=== PATIENT | male | born 1980 | race African-American/Black ===

== ENCOUNTER 2017-05-27 19:34 | Emergency (ER) | payer MEDICAID, OTHER ==
[~2017-05-27] VITALS: Ht 172.7 cm; Wt 212.6 kg
[2017-05-27] MEDS ORDERED: ASPIRIN 81 MG TABLET CHEW ONE (20:48)
[2017-05-27] MEDS ORDERED: OXYcodone/APAP 5/325MG TABLET ONE (20:48)
[2017-05-27 20:53] VITALS: BP 141/82
[2017-05-27 20:56] LABS: BASOPHILS # (AUTO) 0.01 x10^3/uL (0-0.1); BASOPHILS % (AUTO) 0 % (0-1); EOSINOPHILS # (AUTO) 0.09 x10^3/uL (0-0.4); EOSINOPHILS % (AUTO) 1 % (1-7); LYMPHOCYTES # (AUTO) 0.83 x10^3/uL (1-3.4); LYMPHOCYTES % (AUTO) 9 % (22-44); MD NO; MEAN CORPUSCULAR HEMOGLOBIN 24.5 pg (27.5-34.5); MEAN CORPUSCULAR HGB CONC 31.6 g/dL (33.2-36.2); MEAN CORPUSCULAR VOLUME 77.6 fL (81-97); MEAN PLATELET VOLUME 8.2 fL (7.4-10.4); MONOCYTES # (AUTO) 0.55 x10^3/uL (0.2-0.8); MONOCYTES % (AUTO) 6 % (2-9); NEUTROPHILS # (AUTO) 8.27 x10^3/uL (1.8-6.8); NEUTROPHILS % (AUTO) 85 % (42-75); PLATELET COUNT 266 x10^3/uL (130-400); RED CELL DISTRIBUTION WIDTH 17.3 % (9.4-14.8)
[2017-05-27] MEDS ORDERED: OXYcodone/APAP 5/325MG TABLET PO ONE (21:00)
[2017-05-27] MEDS ORDERED: ASPIRIN 81 MG TABLET CHEW PO ONE (21:00)
[2017-05-27 21:06] LABS: ALBUMIN 2.7 g/dL (3.4-5.0); ANION GAP 4 mmol/L (5-15); CALCIUM 8.8 mg/dL (8.5-10.1); CHLORIDE 108 mmol/L (98-107)
[2017-05-27 21:12] LABS: ALANINE AMINOTRANSFERASE 29 U/L (12-78); ALKALINE PHOSPHATASE 118 U/L (45-117); BILIRUBIN,TOTAL 0.2 mg/dL (0.2-1.0); CREATININE 1.05 mg/dL (0.7-1.3); TOTAL PROTEIN 7.4 g/dL (6.4-8.2); TROPONIN I < 0.015 ng/mL (0.000-0.045)
== END 2017-05-27 22:02 | disposition home or self-care (01) ==
LOC: ED 20:41
DX: S29.011A Strain of muscle and tendon of front wall of thorax, initial encounter (principal); X58.XXXA Exposure to other specified factors, initial encounter; Y93.89 Activity, other specified; Y92.89 Other specified places as the place of occurrence of the external cause; Y99.8 Other external cause status; I10 Essential (primary) hypertension; E66.01 Morbid (severe) obesity due to excess calories; Z68.45 Body mass index [BMI] 70 or greater, adult; K21.9 Gastro-esophageal reflux disease without esophagitis; F17.210 Nicotine dependence, cigarettes, uncomplicated
CPT/HCPCS: 36415; 71020; 80053; 83880; 84484; 85025; 93005; 99285

== ENCOUNTER 2017-12-07 22:15 | Inpatient (IN) | payer MEDICAID ==
[~2017-12-07] VITALS: Ht 172.7 cm; Wt 134.2 kg
[2017-12-07] MEDS ORDERED: SODIUM CHLORIDE 0.9% 1,000 ML IV ONE (22:46)
[2017-12-07] MEDS ORDERED: RACEPINEPHRINE INH 2.25%, 0.5ML ONE (22:47)
[2017-12-07] MEDS ORDERED: SODIUM CHLORIDE FLUSH 10ML SYR IVF ONE (23:00)
[2017-12-07] MEDS ORDERED: OMNIPAQUE 350 MG/ML, 100ML BOTTLE ONE (23:00)
[2017-12-07] MEDS ORDERED: DEXAMETHASONE 4 MG/ML, 1ML IV ONE (23:00)
[2017-12-07] MEDS ORDERED: MORPHINE SULFATE 4 MG/ML, 1ML IVPush PRN (23:00)
[2017-12-07] MEDS ORDERED: NITROGLYCERIN OINT 2%, 1GM TP ONE ×2 (23:00→23:04)
[2017-12-07] MEDS ORDERED: DEXAMETHASONE 4 MG/ML, 5ML ONE (23:04)
[2017-12-07] MEDS ORDERED: MORPHINE SULFATE 4 MG/ML, 1ML ONE (23:04)
[2017-12-07] MEDS ORDERED: NITROGLYCERIN SINGLE TAB 0.4 MG SL ONE (23:09)
[2017-12-07 23:30] LABS: BASOPHILS # (AUTO) 0.01 x10^3/uL (0-0.1); BASOPHILS % (AUTO) 0 % (0-1); EOSINOPHILS # (AUTO) 0.06 x10^3/uL (0-0.4); EOSINOPHILS % (AUTO) 1 % (1-7); LYMPHOCYTES # (AUTO) 0.79 x10^3/uL (1-3.4); LYMPHOCYTES % (AUTO) 7 % (22-44); MD NO; MEAN CORPUSCULAR HGB CONC 31.9 g/dL (33.2-36.2); MEAN PLATELET VOLUME 8.8 fL (7.4-10.4); MONOCYTES # (AUTO) 0.35 x10^3/uL (0.2-0.8); MONOCYTES % (AUTO) 3 % (2-9); NEUTROPHILS # (AUTO) 9.83 x10^3/uL (1.8-6.8); NEUTROPHILS % (AUTO) 89 % (42-75); PLATELET COUNT 269 x10^3/uL (130-400); RED BLOOD COUNT 5.78 x10^6/uL (4.38-5.82); RED CELL DISTRIBUTION WIDTH 17.1 % (9.4-14.8)
[2017-12-07 23:42] LABS: INTERNATIONAL NORMALIZED RATIO 0.95 (0.93-1.1); PROTHROMBIN TIME 9.9 Seconds (9.6-11.5)
[2017-12-07 23:44] LABS: ALANINE AMINOTRANSFERASE 27 U/L (12-78); ALBUMIN 2.8 g/dL (3.4-5.0); ANION GAP 6 mmol/L (5-15); CALCIUM 8.6 mg/dL (8.5-10.1); CHLORIDE 105 mmol/L (98-107); CREATININE 0.85 mg/dL (0.7-1.3)
[2017-12-07 23:48] LABS: ALKALINE PHOSPHATASE 137 U/L (45-117); BILIRUBIN,TOTAL 0.2 mg/dL (0.2-1.0); TOTAL PROTEIN 7.6 g/dL (6.4-8.2); TROPONIN I < 0.015 ng/mL (0.000-0.045)
[2017-12-08] MEDS ORDERED: FUROSEMIDE 40 MG/4 ML IV ONE (02:00)
[2017-12-08] MEDS ORDERED: FUROSEMIDE 20 MG/2 ML ONE (02:16)
[2017-12-08 03:09] VITALS: BP 138/80
[2017-12-08] MEDS ORDERED: ONDANSETRON 2MG/ML, 2ML IVPush PRN (05:30)
[2017-12-08] MEDS ORDERED: hydrALAzine 20 MG/ML, 1ML IVPush PRN (05:30)
[2017-12-08] MEDS ORDERED: LABETALOL 5MG/ML, 20ML IVPush PRN (05:30)
[2017-12-08] MEDS ORDERED: POLYETHYLENE GLYCOL 17 GM PACKET PO PRN (05:30)
[2017-12-08] MEDS: ACETAMINOPHEN 325 MG TABLET PO PRN ×3 (05:47→17:22)
[2017-12-08] MEDS: ENOXAPARIN 40 MG/0.4 ML SQ SCH (05:47)
[2017-12-08] MEDS: NICOTINE 21 MG/24 HR PATCH.TD24 TD SCH (05:47)
[2017-12-08] MEDS: HYDROcodone/CHLORPHENIR ORAL SUSP PO PRN ×2 (05:48→18:27)
[2017-12-08 06:55] LABS: TROPONIN I < 0.015 ng/mL (0.000-0.045)
[2017-12-08 07:05] LABS: MEAN CORPUSCULAR HEMOGLOBIN 22.9 pg (27.5-34.5); MEAN CORPUSCULAR HGB CONC 31.3 g/dL (33.2-36.2); MEAN CORPUSCULAR VOLUME 73.1 fL (81-97); PLATELET COUNT 290 x10^3/uL (130-400); RED BLOOD COUNT 5.95 x10^6/uL (4.38-5.82); RED CELL DISTRIBUTION WIDTH 17.3 % (9.4-14.8)
[2017-12-08 07:14] LABS: ALANINE AMINOTRANSFERASE 25 U/L (12-78); ALBUMIN 2.8 g/dL (3.4-5.0); ANION GAP 9 mmol/L (5-15); CALCIUM 8.9 mg/dL (8.5-10.1); CHLORIDE 103 mmol/L (98-107); CREATININE 1.06 mg/dL (0.7-1.3)
[2017-12-08 07:24] LABS: ALKALINE PHOSPHATASE 117 U/L (45-117); BILIRUBIN,TOTAL 0.3 mg/dL (0.2-1.0); TOTAL PROTEIN 7.8 g/dL (6.4-8.2)
[2017-12-08 07:40] VITALS: BP 135/73
[2017-12-08] MEDS ORDERED: GLUCAGON 1 MG IM PRN (08:00)
[2017-12-08] MEDS ORDERED: DEXTROSE 4 GM TAB.CHEW PO PRN (08:00)
[2017-12-08] MEDS ORDERED: DEXTROSE 50%, 50ML SYRINGE IVPush PRN (08:00)
[2017-12-08 08:05] LABS: MD YES
[2017-12-08 08:07] LABS: BAND#(MANUAL) 1.09 x10^3/uL; BANDS%(MANUAL) 7 % (0-7); EOS#(MANUAL) 0.16 x10^3/uL (0.0-0.4); EOS% (MANUAL) 1 % (1-7); LYMPH#(MANUAL) 0.78 x10^3/uL (1-3.4); LYMPHS% (MANUAL) 5 % (22-44); MONOS#(MANUAL) 0.47 x10^3/uL (0.3-2.7); MONOS% (MANUAL) 3 % (2-9); SEGS% (MANUAL) 84 % (42-75)
[2017-12-08 08:08] LABS: <PLATELET ESTIMATE> ADEQUATE; <PLT MORPHOLOGY> NORMAL PLT MORPH; ANISOCYTOSIS 1+; MICROCYTOSIS 1+; TOXIC GRAN 1+
[2017-12-08 08:09] LABS: HYPOCHROMIA 1+
[2017-12-08] MEDS: SODIUM CHLORIDE FLUSH 10ML SYR IVF SCH ×4 (08:46→20:50)
[2017-12-08] MEDS: DOXYCYCLINE 100 MG in DEXTROSE 5% 250 ML IV SCH ×2 (09:31→20:50)
[2017-12-08] MEDS: INSULIN LISPRO 100 UNITS/ML, PEN SQ-INSULIN SCH ×4 (09:31→20:50)
[2017-12-08] MEDS: GUAIFENESIN 100 MG/5 ML, 10ML UDC PO PRN (09:32)
[2017-12-08 10:16] LABS: HEMOGLOBIN A1C 7.1 % (4.2-6.3)
[2017-12-08] MEDS: CEFTRIAXONE PMX 2GM/50ML 50 ML IV SCH (11:10)
[2017-12-08] MEDS ORDERED: BEER 12 OZ CAN PO SCH (12:00)
[2017-12-08] MEDS: SODIUM CHLORIDE 0.9% 1,000 ML IV SCH ×2 (12:14→23:00)
[2017-12-08 12:28] LABS: TROPONIN I < 0.015 ng/mL (0.000-0.045)
[2017-12-08 13:55] VITALS: BP 135/73
[2017-12-08] MEDS ORDERED: FURO80TA3 PO (14:00)
[2017-12-08] MEDS ORDERED: PANT20TA2 PO (14:01)
[2017-12-08] MEDS ORDERED: FOLIC ACID 5 MG/ML IM ONE (15:00)
[2017-12-08] MEDS ORDERED: LORazepam 2 MG/ML, 1ML IV PRN ×5 (15:00)
[2017-12-08] MEDS ORDERED: THIAMINE 200 MG in DEXTROSE 5% 50 ML IVPB ONE (15:00)
[2017-12-08] MEDS ORDERED: LORazepam 1MG TABLET PO PRN ×4 (15:00)
[2017-12-08] MEDS: LORazepam 0.5MG TABLET PO PRN (17:22)
[2017-12-08] MEDS ORDERED: CALCIUM CARBONATE 500 MG TAB.CHEW PO PRN (18:00)
[2017-12-08 20:00] VITALS: BP 143/83
[2017-12-08] MEDS: PANTOPRAZOLE 20MG TABLET PO SCH (20:49)
[2017-12-09 02:00] VITALS: BP 130/88
[2017-12-09 05:56] LABS: BASOPHILS # (AUTO) 0.01 x10^3/uL (0-0.1); BASOPHILS % (AUTO) 0 % (0-1); EOSINOPHILS # (AUTO) 0.01 x10^3/uL (0-0.4); EOSINOPHILS % (AUTO) 0 % (1-7); LYMPHOCYTES # (AUTO) 0.62 x10^3/uL (1-3.4); LYMPHOCYTES % (AUTO) 4 % (22-44); MD NO; MEAN CORPUSCULAR HEMOGLOBIN 23.1 pg (27.5-34.5); MEAN CORPUSCULAR HGB CONC 31.4 g/dL (33.2-36.2); MEAN CORPUSCULAR VOLUME 73.3 fL (81-97); MEAN PLATELET VOLUME 8.4 fL (7.4-10.4); MONOCYTES % (AUTO) 5 % (2-9); NEUTROPHILS # (AUTO) 15.55 x10^3/uL (1.8-6.8); NEUTROPHILS % (AUTO) 91 % (42-75); PLATELET COUNT 267 x10^3/uL (130-400); RED BLOOD COUNT 5.48 x10^6/uL (4.38-5.82); RED CELL DISTRIBUTION WIDTH 17.5 % (9.4-14.8)
[2017-12-09] MEDS: ENOXAPARIN 40 MG/0.4 ML SQ SCH (06:01)
[2017-12-09] MEDS: NICOTINE 21 MG/24 HR PATCH.TD24 TD SCH (06:01)
[2017-12-09 06:08] LABS: CHLORIDE 106 mmol/L (98-107)
[2017-12-09] MEDS: GUAIFENESIN 100 MG/5 ML, 10ML UDC PO PRN ×2 (06:17→20:30)
[2017-12-09] MEDS: ACETAMINOPHEN 325 MG TABLET PO PRN ×3 (06:17→22:17)
[2017-12-09 06:28] LABS: % IRON SATURATION 11 % (20-55); ALANINE AMINOTRANSFERASE 23 U/L (12-78); ALBUMIN 2.6 g/dL (3.4-5.0); ALKALINE PHOSPHATASE 93 U/L (45-117); ANION GAP 6 mmol/L (5-15); BILIRUBIN,TOTAL 0.3 mg/dL (0.2-1.0); CALCIUM 8.6 mg/dL (8.5-10.1); CHOL/HDL RATIO 3.4; CHOLESTEROL, TOTAL 181 mg/dL (140-239); HDL CHOL % 30 % (26-37); HDL CHOLESTEROL (DIRECT) 54 mg/dL (40-60); IRON LEVEL 40 mcg/dL (65-175); LDL CHOLESTEROL,CALCULATED 113 mg/dL (54-169); LDL/HDL RATIO 2.1 (0.5-3.0); TOTAL IRON BINDING CAPACITY 357 mcg/dL (250-450); TOTAL PROTEIN 7.4 g/dL (6.4-8.2); TRIGLYCERIDES 68 mg/dL (50-200); VLDL CHOLESTEROL 14 mg/dL (0-25)
[2017-12-09 07:45] VITALS: BP 122/84
[2017-12-09] MEDS: CEFTRIAXONE PMX 2GM/50ML 50 ML IV SCH (08:38)
[2017-12-09] MEDS: PANTOPRAZOLE 20MG TABLET PO SCH ×2 (08:41→20:30)
[2017-12-09] MEDS: HYDROcodone/CHLORPHENIR ORAL SUSP PO PRN ×2 (08:41→20:31)
[2017-12-09] MEDS: INSULIN LISPRO 100 UNITS/ML, PEN SQ-INSULIN SCH ×4 (08:41→21:00)
[2017-12-09] MEDS: MULTIVITAMINS/MINERALS TABLET PO SCH (08:41)
[2017-12-09] MEDS: SODIUM CHLORIDE FLUSH 10ML SYR IVF SCH ×4 (09:00→20:30)
[2017-12-09] MEDS: SIMETHICONE 125 MG CHEW TAB PO PRN ×2 (09:39→20:30)
[2017-12-09] MEDS: DOXYCYCLINE 100 MG in DEXTROSE 5% 250 ML IV SCH ×2 (09:39→20:29)
[2017-12-09] MEDS: GABAPENTIN 100 MG CAPSULE PO SCH ×3 (09:39→20:30)
[2017-12-09] MEDS: LORazepam 0.5MG TABLET PO PRN ×3 (09:39→22:16)
[2017-12-09] MEDS: LIDODERM 5% PATCH TD SCH (13:06)
[2017-12-09 14:09] VITALS: BP 139/89
[2017-12-09 19:00] VITALS: BP 139/90
[2017-12-09] MEDS: FERROUS SULFATE 325 MG TABLET PO SCH (20:30)
[2017-12-10 01:10] VITALS: BP 133/79
[2017-12-10] MEDS: QUETIAPINE 25MG TABLET PO PRN ×2 (02:24→20:24)
[2017-12-10] MEDS: GABAPENTIN 100 MG CAPSULE PO SCH ×4 (05:47→20:24)
[2017-12-10 05:48] LABS: BASOPHILS # (AUTO) 0.01 x10^3/uL (0-0.1); BASOPHILS % (AUTO) 0 % (0-1); EOSINOPHILS # (AUTO) 0.04 x10^3/uL (0-0.4); EOSINOPHILS % (AUTO) 0 % (1-7); LYMPHOCYTES # (AUTO) 0.83 x10^3/uL (1-3.4); LYMPHOCYTES % (AUTO) 8 % (22-44); MD NO; MEAN CORPUSCULAR HEMOGLOBIN 23.2 pg (27.5-34.5); MEAN CORPUSCULAR HGB CONC 31.5 g/dL (33.2-36.2); MEAN CORPUSCULAR VOLUME 73.6 fL (81-97); MEAN PLATELET VOLUME 8.4 fL (7.4-10.4); MONOCYTES # (AUTO) 0.96 x10^3/uL (0.2-0.8); MONOCYTES % (AUTO) 10 % (2-9); NEUTROPHILS # (AUTO) 8.25 x10^3/uL (1.8-6.8); NEUTROPHILS % (AUTO) 82 % (42-75); PLATELET COUNT 263 x10^3/uL (130-400); RED BLOOD COUNT 5.34 x10^6/uL (4.38-5.82); RED CELL DISTRIBUTION WIDTH 17.5 % (9.4-14.8)
[2017-12-10 05:56] LABS: CHLORIDE 105 mmol/L (98-107)
[2017-12-10 06:00] LABS: ANION GAP 8 mmol/L (5-15); CALCIUM 8.5 mg/dL (8.5-10.1); CREATININE 0.91 mg/dL (0.7-1.3)
[2017-12-10] MEDS: INSULIN LISPRO 100 UNITS/ML, PEN SQ-INSULIN SCH ×4 (07:00→20:08)
[2017-12-10] MEDS: SODIUM CHLORIDE FLUSH 10ML SYR IVF SCH ×4 (08:13→20:25)
[2017-12-10 08:37] VITALS: BP 139/86
[2017-12-10] MEDS: PANTOPRAZOLE 20MG TABLET PO SCH ×2 (08:39→20:23)
[2017-12-10] MEDS: ENOXAPARIN 40 MG/0.4 ML SQ SCH (08:39)
[2017-12-10] MEDS: NICOTINE 21 MG/24 HR PATCH.TD24 TD SCH (08:39)
[2017-12-10] MEDS: CEFTRIAXONE PMX 2GM/50ML 50 ML IV SCH (08:39)
[2017-12-10] MEDS: FERROUS SULFATE 325 MG TABLET PO SCH ×2 (08:39→20:24)
[2017-12-10] MEDS: MULTIVITAMINS/MINERALS TABLET PO SCH (08:39)
[2017-12-10] MEDS: GUAIFENESIN 100 MG/5 ML, 10ML UDC PO PRN ×2 (08:58→20:23)
[2017-12-10] MEDS: ACETAMINOPHEN 325 MG TABLET PO PRN ×2 (08:59→17:37)
[2017-12-10] MEDS: SIMETHICONE 125 MG CHEW TAB PO PRN ×2 (08:59→20:23)
[2017-12-10] MEDS: HYDROcodone/CHLORPHENIR ORAL SUSP PO PRN ×2 (08:59→21:22)
[2017-12-10] MEDS: THIAMINE 100 MG in DEXTROSE 5% 50 ML IVPB SCH (10:31)
[2017-12-10] MEDS: DOXYCYCLINE 100 MG in DEXTROSE 5% 250 ML IV SCH ×2 (11:07→23:44)
[2017-12-10] MEDS: LIDODERM 5% PATCH TD SCH (13:04)
[2017-12-10 16:26] VITALS: BP 160/92
[2017-12-10 18:50] VITALS: BP 137/85
[2017-12-11 02:24] VITALS: BP 141/84
[2017-12-11 05:18] LABS: ALBUMIN 2.6 g/dL (3.4-5.0); ANION GAP 8 mmol/L (5-15); CALCIUM 8.4 mg/dL (8.5-10.1); CHLORIDE 106 mmol/L (98-107)
[2017-12-11 05:18] LABS: BASOPHILS # (AUTO) 0.01 x10^3/uL (0-0.1); BASOPHILS % (AUTO) 0 % (0-1); EOSINOPHILS # (AUTO) 0.06 x10^3/uL (0-0.4); EOSINOPHILS % (AUTO) 1 % (1-7); LYMPHOCYTES # (AUTO) 0.79 x10^3/uL (1-3.4); LYMPHOCYTES % (AUTO) 10 % (22-44); MD NO; MEAN CORPUSCULAR HEMOGLOBIN 23.2 pg (27.5-34.5); MEAN CORPUSCULAR HGB CONC 31.5 g/dL (33.2-36.2); MEAN CORPUSCULAR VOLUME 73.6 fL (81-97); MEAN PLATELET VOLUME 8.4 fL (7.4-10.4); MONOCYTES # (AUTO) 0.72 x10^3/uL (0.2-0.8); MONOCYTES % (AUTO) 9 % (2-9); NEUTROPHILS # (AUTO) 6.59 x10^3/uL (1.8-6.8); NEUTROPHILS % (AUTO) 81 % (42-75); PLATELET COUNT 242 x10^3/uL (130-400); RED BLOOD COUNT 5.29 x10^6/uL (4.38-5.82)
[2017-12-11] MEDS: GABAPENTIN 100 MG CAPSULE PO SCH ×2 (05:45→14:02)
[2017-12-11] MEDS: INSULIN LISPRO 100 UNITS/ML, PEN SQ-INSULIN SCH ×2 (07:00→11:00)
[2017-12-11] MEDS: SODIUM CHLORIDE FLUSH 10ML SYR IVF SCH ×2 (07:46→07:59)
[2017-12-11] MEDS: SIMETHICONE 125 MG CHEW TAB PO PRN (07:57)
[2017-12-11] MEDS: NICOTINE 21 MG/24 HR PATCH.TD24 TD SCH (07:57)
[2017-12-11] MEDS: CEFTRIAXONE PMX 2GM/50ML 50 ML IV SCH (07:58)
[2017-12-11] MEDS: FERROUS SULFATE 325 MG TABLET PO SCH (07:58)
[2017-12-11] MEDS: MULTIVITAMINS/MINERALS TABLET PO SCH (07:58)
[2017-12-11] MEDS: PANTOPRAZOLE 20MG TABLET PO SCH (07:58)
[2017-12-11] MEDS: ENOXAPARIN 40 MG/0.4 ML SQ SCH (07:58)
[2017-12-11 08:29] VITALS: BP 141/84
[2017-12-11] MEDS: THIAMINE 100 MG in DEXTROSE 5% 50 ML IVPB SCH (10:44)
[2017-12-11] MEDS: DOXYCYCLINE 100 MG in DEXTROSE 5% 250 ML IV SCH (11:00)
[2017-12-11 13:47] VITALS: BP 142/86
[2017-12-11] MEDS: LIDODERM 5% PATCH TD SCH (14:02)
[2017-12-11] MEDS ORDERED: ENOXAPARIN 30 MG/0.3 ML SQ SCH (20:30)
== END 2017-12-11 15:31 | disposition left against medical advice (07) | DRG 193 ==
LOC: ED 23:59 → EDIP 12-08 02:00 → 4WST 12-08 03:00
PROVIDERS: ADMIT Hospitalist; ATTEND Hospitalist
DX: J18.9 Pneumonia, unspecified organism (principal); J96.01 Acute respiratory failure with hypoxia; E87.2 Acidosis; Z68.42 Body mass index [BMI] 45.0-49.9, adult; E66.01 Morbid (severe) obesity due to excess calories; G47.33 Obstructive sleep apnea (adult) (pediatric); F17.210 Nicotine dependence, cigarettes, uncomplicated; Z53.21 Procedure and treatment not carried out due to patient leaving prior to being seen by health care provider; D64.9 Anemia, unspecified; I11.0 Hypertensive heart disease with heart failure; I50.9 Heart failure, unspecified; I44.1 Atrioventricular block, second degree; R73.9 Hyperglycemia, unspecified; E16.2 Hypoglycemia, unspecified; G89.29 Other chronic pain; M54.9 Dorsalgia, unspecified; Z88.0 Allergy status to penicillin
CPT/HCPCS: 36415; 70491; 71045; 80048; 80053; 80061; 80307; 82040; 82274; 82728; 82962; 83036; 83540; 83550; 83605; 83735; 83880; 84100; 84145; 84443; 84484; 85025; 85610; 85730; 87040; 87070; 87081; 87205; 87880; 93005; 93306; 94640; 96374; 99285; J0696; J1650; J1940; J3411; J7060; Q9967; J1815; J7030